=== PATIENT | female | born 1975 | race Caucasian/White ===

== ENCOUNTER 2017-05-06 05:25 | Day surgery (SDC) | payer BC ==
[~2017-05-06] VITALS: Ht 162.6 cm; Wt 80.2 kg
[~2017-05-06 05:25] MED LIST: ENDOCET 5-3251 EACH PO; IBUPROFEN800 MG PO; MICROGESTIN1 EAC1 PO; PRENATAL TABLE1 EAC3 PO; TUMS500 MG PO
[2017-05-06 05:58] VITALS: BP 126/63
[2017-05-06] MEDS ORDERED: ENDOCET 5-3251 EACH PO (09:46)
[2017-05-06] MEDS ORDERED: IBUPROFEN800 MG PO (09:46)
[2017-05-06 10:45] VITALS: BP 117/65
[2017-05-06 11:44] VITALS: BP 109/75
[2017-05-06 13:44] VITALS: BP 126/70
== END 2017-05-06 14:01 | disposition home or self-care (01) ==
LOC: SDC 05:25
PROC: 0UT74ZZ Resection of Bilateral Fallopian Tubes, Percutaneous Endoscopic Approach (ICD-10-PCS; principal; 2017-05-06)
PROC: 0UT94ZZ Resection of Uterus, Percutaneous Endoscopic Approach (ICD-10-PCS; principal; 2017-05-06)
DX: D25.9 Leiomyoma of uterus, unspecified (principal); N80.0 Endometriosis of uterus; N73.6 Female pelvic peritoneal adhesions (postinfective); N72 Inflammatory disease of cervix uteri; N92.0 Excessive and frequent menstruation with regular cycle
CPT/HCPCS: 88305; 88307; J0131; J0690; J1100; J1170; J1885; J2250; J2405; J2710; J3010; Q0175